=== PATIENT | male | born 1985 | race Caucasian/White ===

== ENCOUNTER 2025-05-10 09:23 | Emergency (ER) | payer OTHER ==
[~2025-05-10] VITALS: Ht 177.8 cm; Wt 82.0 kg
[2025-05-10 09:25] VITALS: O2SAT 98
[2025-05-10] MEDS ORDERED: AZITHROMYCIN 500MG/250ML 250 ML IV SCH (10:00)
[2025-05-10 10:34] LABS: HEMATOCRIT. 40.4 % (42.0-52.0); HEMOGLOBIN. 14.1 g/dL (14.0-18.0); MEAN PLATELET VOLUME 9.2 fl (7.4-10.4); PLATELET 138 x1000/uL (130-400); RED BLOOD CELL COUNT 4.76 mill/uL (4.7-6.1); RED CELL DISTRIBUTION WIDTH 12.7 % (11.6-14.6)
[2025-05-10] MEDS: SODIUM CHLORIDE 0.9% 1,000 ML IV ONE (10:35)
[2025-05-10] MEDS: AZITHROMYCIN 500MG/250ML 250 ML IV SCH (10:35)
[2025-05-10 10:40] LABS: CREATININE 1.1 mg/dL (0.6-1.3)
[2025-05-10 10:41] LABS: UREA NITROGEN BLOOD 12 mg/dL (9-23)
[2025-05-10 10:42] LABS: ASPARTATE AMINOTRANSFERASE 61 IU/L (<34)
[2025-05-10 10:43] LABS: BILIRUBIN DIRECT 0.4 mg/dL (<=3.0); BILIRUBIN TOTAL 1.0 mg/dL (0.1-1.0); PROTEIN TOTAL 7.3 g/dL (6.0-8.3)
[2025-05-10 11:16] LABS: BAND% 27.0 % (1.0-6.0); LYMPHOCYTES % MANUAL 16.0 % (20.0-50.0); MONOCYTES % MANUAL 11.0 % (2.0-8.0); NEUTROPHILS % MANUAL 46.0 % (45.0-75.0)
[2025-05-10 11:21] LABS: PLATELET ESTIMATE NORMAL
[2025-05-10 11:27] VITALS: BP 116/74; PULSE 90; RESP 16; TEMP 37.2; O2SAT 98
[2025-05-10] MEDS ORDERED: AZIT250T12 PO (11:29)
== END 2025-05-10 11:55 | disposition home or self-care (01) ==
LOC: ER 09:40
DX: R55 Syncope and collapse (principal); A28.1 Cat-scratch disease
CPT/HCPCS: 80076; 80048; 83605; 85025; 87040; 36415; 71045; 93005; 96365; 99285; J0456; J7030; Z7610; A4606